=== PATIENT | female | born 1965 | race Two or more races ===

== ENCOUNTER 2018-12-22 10:16 | Outpatient (CLI) | payer MEDICAID ==
[~2018-12-22] VITALS: Ht 165.1 cm; Wt 74.4 kg
[2018-12-22 15:03] VITALS: BP 108/75
[2018-12-22] MEDS ORDERED: ACETAMINOPHEN-1 EAC1 ORAL (15:03)
[2018-12-22] MEDS ORDERED: KLONOPIN0.5 MG ORAL (15:03)
--- NOTE | 2018-12-22 18:00 | Consultation ---
DATE OF CONSULTATION: 12/22/2018 CHIEF COMPLAINT: Screening colonoscopy evaluation. HISTORY OF PRESENT ILLNESS: This is a 53-year-old female with past medical history of breast cancer, who was referred for screening colonoscopy. PAST MEDICAL HISTORY: Significant for depression, anxiety, breast cancer, back pain, and blood transfusion. PAST SURGICAL HISTORY: Significant for mastectomy in May 2018 and she had a laparoscopic cholecystectomy and reconstruction later. MEDICATIONS: Please see medication reconciliation list. FAMILY HISTORY: Father had lung cancer. Mother had breast cancer. SOCIAL HISTORY: The patient drinks socially, quit tobacco in 2016. No IV drug abuse. ALLERGIES: No known drug allergies. REVIEW OF SYSTEMS: Positive for abdominal pain, GERD, constipation and diarrhea. PHYSICAL EXAMINATION: VITAL SIGNS: Temperature 98.2, blood pressure is 108/75, pulse 75, respirations 20. HEENT: Normocephalic and atraumatic. Sclerae anicteric. NECK: Supple. No evidence of obvious lymphadenopathy. CARDIOVASCULAR: Regular rate and rhythm. Plus S1 and S2. No obvious murmur. LUNGS: Decreased breath sounds bilaterally based on the supine exam. ABDOMEN: Soft and nontender. No rebound. No guarding. No peritoneal sign. EXTREMITIES: No cyanosis, no clubbing, no edema. ASSESSMENT AND PLAN: This is a 53-year-old female with past medical history of breast cancer, now referred for screening colonoscopy and also given chronic GERD the patient will also need endoscopy. The patient was given information for endoscopy and colonoscopy and prep. We are waiting for authorization and when it is obtained, we want to schedule for both. Tyree Posada M.D. DR: LASHONDA JOB#: [id number] CC:
== END 2018-12-22 12:15 | disposition home or self-care (01) ==
LOC: PAN 10:16
DX: K21.9 Gastro-esophageal reflux disease without esophagitis (principal); Z85.3 Personal history of malignant neoplasm of breast; Z90.10 Acquired absence of unspecified breast and nipple; Z90.49 Acquired absence of other specified parts of digestive tract; Z80.3 Family history of malignant neoplasm of breast; Z80.1 Family history of malignant neoplasm of trachea, bronchus and lung; K59.00 Constipation, unspecified; R19.7 Diarrhea, unspecified
CPT/HCPCS: 99202